=== PATIENT | male | born 1960 | race Caucasian/White ===

== ENCOUNTER 2018-05-07 11:21 | Inpatient (IN) | payer OTHER ==
[~2018-05-07] VITALS: Ht 177.8 cm; Wt 92.5 kg
[~2018-05-07 11:21] MED LIST: MOBIC 15MG15 MG PO; PERCOCET 325 MG1 TA2 PO
--- NOTE | 2018-05-07 11:56 | ED GENERAL ADULT ---
History of Present Illness General Chief Complaint: Fever Stated Complaint: FEVER Source: patient Exam Limitations: no limitations Vital Signs & Intake/Output Vital Signs & Intake/Output Vital Signs Date Time Temp Pulse Resp B/P B/P Pulse O2 O2 Flow FiO2 Mean Ox Delivery Rate 05/07 1510 90/58 05/07 1433 99.3 90 20 97/68 96 Room Air 05/07 1330 97 Room Air 05/07 1141 102.2 05/07 1139 102.2 130 20 135/75 94 Allergies Coded Allergies: NO KNOWN ALLERGIES (NONE 05/07/18) Reconcile Medications No Known Home Medications Triage Note: PT C/O FEVERS SINCE MONDAY NIGHT. STATES H/A, MUSCLE ACHES, EYE PAIN. TEMP 102.2 IN TRIAGE. PT GIVEN 800 MG MOTRIN IN TRIAGE. Triage Nurses Notes Reviewed? yes HPI: Patient states that on Monday evening he developed a fever. He has had anorexia. He denies any coughing or sore throat. States that last night he developed a throbbing frontal headache. Pain is constant. There is no radiation. There is no aggravating or mitigating factors. There is no nausea or vomiting. He denies any neck pain or neck stiffness. Patient also states that intermittently he has been having a crampy pain in his periumbilical area. The pain lasts a few minutes and then goes away. There is no radiation when he gets the pain. At its worst the pain was 3 out of 10. Past History Travel History Traveled to [place] past 21 day No Medical History Any Pertinent Medical History? 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 No Review of Systems Review of Systems Constitutional: Reports: see HPI, chills, fever, weakness. EENTM: Reports: no symptoms. Respiratory: Reports: no symptoms. Cardiovascular: Reports: no symptoms. GI: Reports: see HPI, abdominal pain. Genitourinary: Reports: no symptoms. Musculoskeletal: Reports: see HPI, muscle pain. Skin: Reports: no symptoms. Neurological/Psychological: Reports: see HPI, headache. Hematologic/Endocrine: Reports: no symptoms. Immunologic/Allergic: Reports: no symptoms. All Other Systems: Reviewed and Negative Physical Exam Physical Exam General Appearance: well developed/nourished, alert, awake, anxious, moderate distress Head: atraumatic, normal appearance Eyes: Bilateral: PERRL, EOMI. Ears, Nose, Throat: normal pharynx, DRY MUCOSA Neck: normal inspection, supple, full range of motion Respiratory: normal breath sounds, chest non-tender, no respiratory distress, lungs clear Cardiovascular: regular rate/rhythm, normal peripheral pulses Gastrointestinal: normal bowel sounds, soft, non-tender, no organomegaly Back: normal inspection, normal range of motion Extremities: normal inspection, normal capillary refill, normal range of motion, no edema Neurologic/Psych: no motor/sensory deficits, awake, alert, oriented x 3, normal gait, normal mood/affect Skin: intact, normal color, warm/dry Lymphatic: no anterior cervical luca Core Measures ACS in differential dx? No CVA/TIA Diagnosis: No Sepsis Present: No Sepsis Focused Exam Completed? No Progress Differential Diagnoses I considered the following diagnoses in my evaluation of the patient: [Sepsis, seizures, Lyme disease, anaplasmosis, UTI, pneumonia] Plan of Care: Orders Procedure Date/time Status Regular Diet 05/07 D Active ED Holding Orders 05/07 1521 Active Admit to inpatient 05/07 1521 Active Vital Signs 05/07 1521 Active Code Status 05/07 1521 Active LACTIC ACID 05/07 1446 Active TROPONIN LEVEL 05/07 1200 Complete LIPASE 05/07 1200 Complete Add-on Test (ER Only) 05/07 1156 Active BLOOD CULTURE 05/07 1146 Active LACTIC ACID 05/07 1146 Complete EKG 05/07 1146 Active URINALYSIS 05/07 1144 Active LYME TITRE 05/07 1144 Complete COMPREHENSIVE METABOLIC PANEL 05/07 1144 Complete CREATINE PHOSPHOKINASE 05/07 1144 Complete CBC WITHOUT DIFFERENTIAL 05/07 1144 Complete Current Medications Sig/Gilles Start time Last Medication Dose Stop Time Status Admin Azithromycin 500 MG ONCE ONE 05/07 1515 AC (Zithromax) 05/07 1614 Sodium Chloride 250 ML (Normal Saline 0.9%) Sodium Chloride 1,000 ML BOLUS ONE 05/07 1515 AC (Normal Saline 0.9%) 05/07 1614 Sodium Chloride 1,000 ML BOLUS ONE 05/07 1515 AC (Normal Saline 0.9%) 05/07 1614 Acetaminophen 1,000 MG ONCE ONE 05/07 1145 CAN (Ofirmev) 05/07 1159 N/A 1 UNIT (No Carrier) Laboratory Tests 05/07/18 1200: Lactic Acid 2.4 H 05/07/18 1200: Anion Gap 15, Estimated GFR > 60, BUN/Creatinine Ratio 14.2, Glucose 166 H, Calcium 8.9, Total Bilirubin 0.9, AST 56, ALT 57, Alkaline Phosphatase 75, Creatine Kinase 76, Troponin I < 0.01, Total Protein 7.4, Albumin 4.3, Globulin 3.1, Albumin/Globulin Ratio 1.4, Lipase 128, CBC w Diff MAN DIFF ORDERED, RBC 5.65, MCV 90.3, MCH 31.4 H, MCHC 34.8, RDW 13.3, MPV 7.3 L, Gran % 92.1 H, Lymphocytes % 6.5 L, Monocytes % 1.4 L, Eosinophils % 0, Basophils % 0, Absolute Granulocytes 5.8, Segmented Neutrophils 70, Band Neutrophils 18 H, Absolute Lymphocytes 0.4 L, Lymphocytes 9 L, Monocytes 3, Absolute Monocytes 0.1, Absolute Eosinophils 0, Absolute Basophils 0, Platelet Estimate ADEQUATE, Normocytic RBCs VERIFIED, Normochromic RBCs VERIFIED, Lyme Disease Antibody 0.13 Microbiology 05/07 1205 BLOOD: Blood Culture - RECD 05/07 1200 BLOOD: Blood Culture - RECD Diagnostic Imaging: Viewed by Me: Radiology Read. Discussed w/RAD: Radiology Read. Radiology Impression: PATIENT: COOPER ROGERS PRESENT AGE: 57 PATIENT ACCOUNT NO: [id number] : 62 LOCATION: [facility] ([facility]) ORDERING PHYSICIAN: Isacc CASTILLO SERVICE DATE: 05/07/18 EXAM TYPE: CAT - CT ABD & PELVIS W IV CONTRAST EXAMINATION: CT ABDOMEN AND PELVIS WITH CONTRAST CLINICAL INFORMATION: Abdominal pain and fever COMPARISON: None TECHNIQUE: Multidetector volumetric imaging was performed of the abdomen and pelvis following IV administration of 95 mL of Optiray 320 intravenous contrast. Sagittal and coronal reformatted images were obtained on the technologist's workstation. DLP: 422.80 mGy-cm FINDINGS: LUNG BASES: The visualized lung bases are unremarkable. LIVER, GALLBLADDER, AND BILIARY TREE: The liver is normal in size, shape, and attenuation. No focal hepatic lesion or biliary ductal dilatation is present. The gallbladder is unremarkable with no evidence of radiopaque gallstones, gallbladder wall thickening, or obvious pericholecystic inflammatory changes. PANCREAS: Unremarkable. SPLEEN: Unremarkable. ADRENAL GLANDS: Unremarkable. KIDNEYS AND URETERS: The kidneys are normal in size, shape , and attenuation. No hydronephrosis, hydroureter, or calculi seen. No perinephric stranding. BLADDER: Unremarkable. GASTROINTESTINAL TRACT: No acute bowel pathology. Moderate fecal material noted in the sigmoid colon and rectum. The appendix is unremarkable. ABDOMINAL WALL: No significant hernia is appreciated. LYMPH NODES: Mildly enlarged right external iliac lymph node ( coronal image 40-41) measuring approximately 1 cm in short axis. VASCULAR: Mild atherosclerotic disease of the aorta. PELVIC VISCERA: Mildly enlarged prostate gland. 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 Grade 1 anterolisthesis L4-L5 and L5-S1 levels. Vertebral body heights are preserved. Degenerative endplate disease noted at multiple levels. IMPRESSION: 1. No acute intra-abdominal pathology. 2. Probable reactive mildly prominent right external iliac lymph node. Clinical correlation recommended. 3. Mild prostatomegaly. 4. 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 Grade 1 anterolisthesis L4-L5 and L5-S1 levels. DICTATED BY: Bernadette Diaz MD DATE/TIME DICTATED:05/07/181351 EMBOSSING PRESS OPERATOR APPRENTICE:KASSANDRA DATE/TIME TRANSCRIBED:05/07/181351 CONFIDENTIAL, DO NOT COPY WITHOUT APPROPRIATE AUTHORIZATION. <Electronically signed in Other Vendor System> SIGNED BY: Bernadette Diaz MD 05/07/18 1413 CXR Impression: PATIENT: COOPER ROGERS PRESENT AGE: 57 PATIENT ACCOUNT NO: [id number] : 64 LOCATION: [facility] ([facility]) ORDERING PHYSICIAN: Karson Ndiaye MD SERVICE DATE: 05/07/18-1206 EXAM TYPE: RAD - XRY-CHEST XRAY, TWO VIEWS EXAMINATION: XR CHEST CLINICAL INFORMATION: Fever COMPARISON: None TECHNIQUE: 2 views of the chest were obtained. FINDINGS: Heart size and pulmonary vascularity is within normal limits. The lungs are normally expanded and clear. No focal consolidation or atelectasis is seen. There is no pneumothorax or pleural effusion. 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 No acute bony abnormality is seen. IMPRESSION: Chest x- ray shows normally expanded and clear lungs with no acute findings. DICTATED BY: Starla Cuba MD DATE/TIME DICTATED:05/07/181327 EMBOSSING PRESS OPERATOR APPRENTICE: KASSANDRA DATE/TIME TRANSCRIBED:05/07/181327 CONFIDENTIAL, DO NOT COPY WITHOUT APPROPRIATE AUTHORIZATION. <Electronically signed in Other Vendor System> SIGNED BY: Starla Cuba MD 05/07/18 2989 Initial ED EKG: S TACH AT 120, NSSTT CHANGES Comments: Patient's blood pressure has been steadily decreasing. Currently is 90s systolic manually. At this point patient will be admitted for broad-spectrum antibiotics and aggressive hydration. Departure Departure Disposition: STILL A PATIENT Condition: Guarded Clinical Impression Primary Impression: SIRS (systemic inflammatory response syndrome) Referrals: Hraish Fernandes MD Departure Forms: Customer Survey General Discharge Information Prescriptions: Current Visit Scripts No Known Home Medications Admission Note Spoke With: Yissel Huggins MD Documentation of Exam: Documentation of any treatments & extenuating circumstances including Concerns Regarding Discharge (functional status, medication knowledge or non-compliance, living conditions, etc.) that warrant an admission rather than observation: [ Admission, broad-spectrum antibiotics, aggressive hydration, follow-up cultures, follow-up lyme panel, ID consult] Critical Care Note Critical Care Note Critical Care Time: mins: (90 MIN)
[2018-05-07 12:11] LABS: ABSOLUTE BASOPHIL COUNT 0 /CUMM (0.0-0.2); ABSOLUTE EOSINOPHIL COUNT 0 /CUMM (0.0-0.7); ABSOLUTE GRANULOCYTE CT 5.8 /CUMM (1.4-6.5); ABSOLUTE LYMPH COUNT 0.4 /CUMM (1.2-3.4); ABSOLUTE MONOCYTE COUNT 0.1 /CUMM (0.10-0.60); BASOPHIL % 0 % (0.0-2.0); EOSINOPHIL % 0 % (0-5); GRANULOCYTE % 92.1 % (42.2-75.2); MEAN CORPUSCULAR HGB 31.4 PG (27.0-31.0); MEAN CORPUSCULAR HGB CONC 34.8 G/DL (33.0-37.0); MEAN CORPUSCULAR VOLUME 90.3 FL (80.0-94.0); MEAN PLATELET VOLUME 7.3 FL (7.4-10.4); PLATELET COUNT 158 /CUMM (130-400); RBC DISTRIBUTION WIDTH 13.3 % (11.5-14.5); WHITE BLOOD CELL COUNT 6.3 /CUMM (4.8-10.8)
--- NOTE | 2018-05-07 13:34 | RADIOLOGY REPORT ---
EXAMINATION: XR CHEST CLINICAL INFORMATION: Fever COMPARISON: None TECHNIQUE: 2 views of the chest were obtained. FINDINGS: Heart size and pulmonary vascularity is within normal limits. The lungs are normally expanded and clear. No focal consolidation or atelectasis is seen. There is no pneumothorax or pleural effusion. 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 No acute bony abnormality is seen. IMPRESSION: Chest x-ray shows normally expanded and clear lungs with no acute findings.
--- NOTE | 2018-05-07 14:13 | CT SCAN REPORT ---
EXAMINATION: CT ABDOMEN AND PELVIS WITH CONTRAST CLINICAL INFORMATION: Abdominal pain and fever COMPARISON: None TECHNIQUE: Multidetector volumetric imaging was performed of the abdomen and pelvis following IV administration of 95 mL of Optiray 320 intravenous contrast. Sagittal and coronal reformatted images were obtained on the technologist's workstation. DLP: 422.80 mGy-cm FINDINGS: LUNG BASES: The visualized lung bases are unremarkable. LIVER, GALLBLADDER, AND BILIARY TREE: The liver is normal in size, shape, and attenuation. No focal hepatic lesion or biliary ductal dilatation is present. The gallbladder is unremarkable with no evidence of radiopaque gallstones, gallbladder wall thickening, or obvious pericholecystic inflammatory changes. PANCREAS: Unremarkable. SPLEEN: Unremarkable. ADRENAL GLANDS: Unremarkable. KIDNEYS AND URETERS: The kidneys are normal in size, shape, and attenuation. No hydronephrosis, hydroureter, or calculi seen. No perinephric stranding. BLADDER: Unremarkable. GASTROINTESTINAL TRACT: No acute bowel pathology. Moderate fecal material noted in the sigmoid colon and rectum. The appendix is unremarkable. ABDOMINAL WALL: No significant hernia is appreciated. LYMPH NODES: Mildly enlarged right external iliac lymph node (coronal image 40-41) measuring approximately 1 cm in short axis. VASCULAR: Mild atherosclerotic disease of the aorta. PELVIC VISCERA: Mildly enlarged prostate gland. 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 Grade 1 anterolisthesis L4-L5 and L5-S1 levels. Vertebral body heights are preserved. Degenerative endplate disease noted at multiple levels. IMPRESSION: 1. No acute intra-abdominal pathology. 2. Probable reactive mildly prominent right external iliac lymph node. Clinical correlation recommended. 3. Mild prostatomegaly. 4. 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 Grade 1 anterolisthesis L4-L5 and L5-S1 levels.
--- NOTE | 2018-05-07 17:04 | History & Physical ---
Macario Griffin MD 05/07/18 5063: General Information and HPI MD Statement: I have seen and personally examined COOPER ROGERS and documented this H&P. The patient is a 57 year old M who presented with a patient stated chief complaint of [fever,fatigue]. Source of Information: patient, family Exam Limitations: no limitations History of Present Illness: Patient is a 57-year-old male with no significant past medical history presenting this admission with chief complaint of fever, fatigue and abdominal cramps. Patient reports that 2 days prior to admission he cooked beef tongue which he obtained from a local former. Patient reports that after approximately an hour of eating he started noticing fever, abdominal cramps and bloating and muscle aches. Reports that the abdominal pain was localized to his epigastric region and nonradiating. Patient states that he measure his temperature which was 103. Patient denies any nausea/vomitting or diarrhea. Reports he had diffuse muscle aches and throbbing headache and night sweats. States that he did not eat much over the past 2 days. Patient states he waited to come to the hospital today as he had court this morning. States his symptoms have continued and in addition started having chills. Patient reports that he lives with his girlfriend who was at bedside during time of interview. She states that he has not appeared to be like his usual self and appears much more lethargic. She states that she did not eat the beef tongue. Patient denies sick contacts, bug bite or recent travel. 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 Denies smoking, alcohol use or other drug use. Patient denies allergies. Patient reports he is not currently on any medications and denies any past medical history. Reports no significant family history. Patient denies recent illness prior to these symptoms, cough, chest pain, shortness of breath, palpitations, dizziness, dysuria/hematuria. Patient presented to the ED with a max temp of 102.2, a HR of 130 and bp which dropped from 135/75 to 97/68. Patient was given 3L NS boluses with improvement in his blood pressure. Patient received broad spectrum antibiotics, IV Ceftaz 1gm x1 and IV Azithromycin x1. 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 Exam & Diagnostic Data Last 24 Hrs of Vital Signs/I&O Vital Signs Date Time Temp Pulse Resp B/P B/P Pulse O2 O2 Flow FiO2 Mean Ox Delivery Rate 05/07 1647 98.0 71 18 97/61 97 Room Air 05/07 1526 98.5 86 16 98 Room Air 05/07 1510 90/58 05/07 1433 99.3 90 20 97/68 96 Room Air 05/07 1330 97 Room Air 05/07 1141 102.2 05/07 1139 102.2 130 20 135/75 94 Intake & Output 05/07 1600 05/07 0800 05/07 0000 Intake Total 3000 Output Total Balance 3000 Intake, IV 3000 Patient 204 lb Weight Weight Reported by Patient Measurement Method Physical Exam General Appearance Alert, Oriented X3, Cooperative, No Acute Distress Skin No Rashes Skin Temp/Moisture Exam: Warm/Dry Sepsis Skin Exam (color): Normal for Ethnicity HEENT Atraumatic, PERRLA, EOMI, dry mucosal membranes Neck Supple, No thryomegaly, no nuccal rigidity Cardiovascular Regular Rate, Normal S1, Normal S2 Lungs Clear to Auscultation, Normal Air Movement Abdomen Normal Bowel Sounds, Soft, No Tenderness Neurological Normal Speech, Strength at 5/5 X4 Ext, Normal Tone, Sensation Intact, Cranial Nerves 3-12 NL, Reflexes 2+ Extremities No Clubbing, No Cyanosis, No Edema, Normal Pulses, No Tenderness/ Swelling Vascular Normal Pulses, Pulses Symmetrical Last 24 Hrs of Labs/Samuel: Laboratory Tests 05/07/18 1815: Lactic Acid 1.0 05/07/18 1546: Urine Opiates Screen < 100, Methadone Screen < 40, Barbiturate Screen < 60, Ur Phencyclidine Scrn < 6.00, Amphetamines Screen < 100, U Benzodiazepines Scrn < 85, Urine Cocaine Screen < 50, Urine Cannabis Screen < 5.00, Urinalysis MOD H, Urine Color YEL, Urine Clarity CLEAR, Urine pH 6.0, Ur Specific Currie 1.020, Urine Protein 100 H, Urine Ketones NEG, Urine Nitrite NEG, Urine Bilirubin NEG, Urine Urobilinogen 2.0 H, Ur Leukocyte Esterase NEG, Ur Microscopic SEDIMENT EXAMINED, Urine RBC RARE, Urine WBC RARE, Ur Epithelial Cells FEW, Urine Bacteria RARE H, Urine Mucus FEW, Urine Hemoglobin TRACE-INTACT H, Urine Glucose NEG 05/07/18 1200: Lactic Acid 2.4 H 05/07/18 1200: Anion Gap 15, Estimated GFR > 60, BUN/Creatinine Ratio 14.2, Glucose 166 H, Calcium 8.9, Total Bilirubin 0.9, AST 56, ALT 57, Alkaline Phosphatase 75, Lactate Dehydrogenase 689 H, Creatine Kinase 76, Troponin I < 0.01, C-Reactive Prot, Quant > 9.0 H, Total Protein 7.4, Albumin 4.3, Globulin 3.1, Albumin/ Globulin Ratio 1.4, Triglycerides 112, Cholesterol 241 H, LDL Cholesterol, Calc 167 H, HDL Cholesterol 52, Cholesterol/HDL Ratio 5 H, Lipase 128, TSH 0.648, Free T4 1.24, CBC w Diff MAN DIFF ORDERED, RBC 5.65, MCV 90.3, MCH 31.4 H, MCHC 34.8, RDW 13.3, MPV 7.3 L, Gran % 92.1 H, Lymphocytes % 6.5 L, Monocytes % 1.4 L, Eosinophils % 0, Basophils % 0, Absolute Granulocytes 5.8, Segmented Neutrophils 70, Band Neutrophils 18 H, Absolute Lymphocytes 0.4 L, Lymphocytes 9 L, Monocytes 3, Absolute Monocytes 0.1, Absolute Eosinophils 0, Absolute Basophils 0, Platelet Estimate ADEQUATE, Normocytic RBCs VERIFIED, Normochromic RBCs VERIFIED, ESR Westergren 4, Lyme Disease Antibody 0.13 Microbiology 05/07 1205 BLOOD: Blood Culture - RECD 05/07 1200 BLOOD: Blood Culture - RECD Diagnostic Data EKG Results Sinus tachycardia CXR Results IMPRESSION: Chest x-ray shows normally expanded and clear lungs with no acute findings. Other Results CT ABDOMEN/PELVIS W/CONTRAST IMPRESSION: 1. No acute intra-abdominal pathology. 2. Probable reactive mildly prominent right external iliac lymph node. Clinical correlation recommended. 3. Mild prostatomegaly. 4. 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 Grade 1 anterolisthesis L4-L5 and L5-S1 levels. Assessment/Plan Assessment: Patient is a 57-year-old male with no significant past medical history presenting with significant hypotension, tachycardia, fever and abdominal cramps after ingesting beef tongue which he cooked himself 2 days ago. Patient in the ED was febrile to a MAXIMUM TEMPERATURE of 102.2 and was significantly hypotensive requiring 3 boluses of normal saline. Patient's chest x-ray and CT did not show any significant findings. Patient's blood work significant for lactic acid of 2.4 and bandemia. Urinalysis was unremarkable. After IV fluids patient's bp increased to 110s/80s. Patient was stable for admission to the general medical floor. Patient has received broad spectrum antibiotics x 1 dose. 1. SIRS/Fever of Unknown Origin * Admitted to general medicine * Close monitor of vitals * Follow up blood and urine cultures * Follow off antibiotics * CT Head/Sinus * ESR, CRP, LDH * CT Chest pending LDH level for possible lymphoma * Continue IV fluid hydration * Repeat CBC and BEP in AM * Trend lactic acid q3h until it normalizes * Follow up Utox DVT PPx: Lovenox Diet: Regular Code: Full code As Ranked By This Provider Problem List: 1. SIRS (systemic inflammatory response syndrome) 2. Fever of unknown origin (FUO) Core Measures/Misc (08/06) Acute Coronary Syndrome ACS Diagnosis: No Congestive Heart Failure Congestive Heart Failure Diagnosis No Cerebrovascular Accident CVA/TIA Diagnosis: No VTE (View Protocol) VTE Risk Factors Age>40 No Mechanical VTE Prophylaxis d/t N/A MechProphylax Ordered No VTE Pharm Prophylaxis d/t NA PharmProphylax ordered Sepsis (View protocol) If YES complete Sepsis Event Note If YES complete Sepsis Event Note Toni Dennis 05/07/18 1823: General Information and HPI Allergies/Medications Home Med list Doxycycline Hyclate 100 MG CAPSULE 1 TAB PO BID TICK BORNE ILLNESS Take 1 tab tonight Then take 1 tab in the morning and 1 tab at bedtime until completed. Core Measures/Misc (08/06) Sepsis (View protocol) Sepsis Present: No If YES complete Sepsis Event Note If YES complete Sepsis Event Note Resident Review Statement Resident Statement: examined this patient, discussed with director international, agreed with director international, discussed with family, reviewed EMR data (avail), discussed with nursing , discussed with case mgmt, reviewed images, amended to note Other Findings: This is a 57-year-old male with no past medical history presented to the emergency department with chief complaint of fever since Monday night. Patient reports ongoing fever for last couple of days. Patient also reports intermittent abdominal discomfort associated with the bloating sensation for couple of days. He states that he cooked beef on Monday evening, after that he had fever and night sweats. MAXIMUM TEMPERATURE was 103. States that last night he developed a throbbing frontal headache. Pain is constant. There is no radiation. There is no aggravating or mitigating factors. There is no nausea or vomiting. He denies any neck pain or neck stiffness, photophobia. Patient also states that intermittently he has been having a crampy pain in his periumbilical area. He denies any chest pain, short of breath, cough, sputum production, hemoptysis, nausea, vomiting, change in bladder or bowel habits. No travel history or sick contacts. He reports generalized muscle pain, fatigue, anorexia. Denies any weight loss. No history of smoking, alcohol abuse, recreational drug use. No family history of cancer, hypertension, diabetes ------ Vitals MAXIMUM TEMPERATURE 102.2, tachycardia 130, respiratory rate 20, blood pressure 135/75, saturating at 96 on room air. On exam HEENT within normal limit, no JVD, no lymphadenopathy, S1-S2 regular, lung bilateral breath sounds good, abdomen soft nontender non-distended, bilateral lower extremities no edema. No focal neurologic deficit. No meningeal signs on exam. WBC 6.3 with bandemia 18, hemoglobin 17 and hematocrit 51, platelets 158. Sodium 140, potassium 3.8, BUN 17 and creatinine 1.2. Lyme panel negative Urine analysis negative Chest x-ray no acute cardiopulmonary findings LFT normal Troponin negative EKG sinus tachycardia, sinus rhythm, no acute ST-T wave changes CAT scan abdomen and pelvis 1. No acute intra-abdominal pathology. 2. Probable reactive mildly prominent right external iliac lymph node. Clinical correlation recommended. 3. Mild prostatomegaly. 4. 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 Grade 1 anterolisthesis L4-L5 and L5-S1 levels. 1. Fever of unknown origin Patient presented with fever Tmax 103. He is tachycardic, fulfilled SIRS criteria at the time of admission. He was hypotensive 90/58 in the emergency room requiring 2 L of normal saline bolus. Lactic acid was elevated at 2.4. Source of infection is unknown so far. Chest x-ray was clear, no acute cardiopulmonary findings, no pneumonia. Urine analysis was normal. 2 sets of blood cultures were sent. Lyme titers were negative. CAT scan abdomen and pelvis showed, no acute intra-abdominal pathology, no source of infection was found. Given his intake of beef tongue, Escherichia coli might be one of the possibility. However he has no D diarrhea. Will get CAT scan head, sinus to look for any infection. No signs of meningeal infection. No source of tumor was found. No known connective tissue abnormalities. * Admit to general med for further management * Monitor vitals every shift * Monitor for fever, leukocytosis * Trend lactic acid * Monitor for bandemia * Follow-up blood cultures * Follow-up CAT scan head and sinus * Follow-up ESR, CRP, look for any connective tissue abnormality. * Follow-up LDH * Follow-up U tox * If LDH is 7 CAT scan chest to look for any lymphoma * Continue gentle hydration to maintain good blood pressure * Patient received 1 dose of ceftaz and azithromycin in the emergency room * We'll monitor him off from antibiotics for now Patient is full code Regular diet DVT prophylaxis subcutaneous heparin Pain pathway Tylenol Yissel Huggins 05/07/18 2222: Core Measures/Misc (08/06) Sepsis (View protocol) If YES complete Sepsis Event Note If YES complete Sepsis Event Note Attending MD Review Statement Attending Statement Attending MD Statement: examined this patient, discuss w/resident/PA/DIE TRY OUT WORKER, agreed w/resident/PA/DIE TRY OUT WORKER, discussed with family, reviewed EMR data (avail) Attending Assessment/Plan: 57-year-old male with no significant past medical history presenting this admission with chief complaint of fever, fatigue and abdominal cramps. Pt reported eating beef tongue which he got from local farm. He started having symptoms about an hour after eating it and had fever of 101 on Monday night. Pt cont having fevers on monday with fevers upto 102. In ER also pt had fever and was found to be hypotensive. Pt also had lactic acidosis also in ER. SIRS/Fever of unknown origin- Workup done in ER including abdominal CT and cxr and UA was negative. we did head CT which did not show any pathology to explain the fever. CRP done was high and so was LDH. Will do CT chest to look for the source. Unlear etiology of fever at present . Pt has normal wbc but has bandemia. Was given abx in ER but will hold off on abx for now. Will get ID consult in am.
[2018-05-07 17:20] VITALS: BP 110/68
[2018-05-07 19:36] VITALS: BP 114/70
--- NOTE | 2018-05-07 21:33 | CT SCAN REPORT ---
EXAMINATION: CT HEAD WITHOUT CONTRAST CT PARANASAL SINUSES BONES WITHOUT CONTRAST CLINICAL INFORMATION: Sepsis. Fever of unknown origin. Assess sinuses. COMPARISON: None. TECHNIQUE: Multidetector CT imaging of the head and paranasal sinuses bones was performed without the use of intravenous contrast. Coronal and sagittal reformatted images were generated at the technologist workstation. DLP: 852 mGy-cm. FINDINGS: CT Head: There is no evidence of acute intracranial hemorrhage or territorial infarction. No abnormal mass-effect or midline shift is seen. Walton to white matter differentiation is well preserved. No extra-axial fluid collections are identified. The ventricles are normal in size; asymmetry of the bodies of the lateral ventricles is within normal limits of variation. There is no abnormal attenuation within the brain parenchyma. The osseous structures and soft tissues are normal. CT Sinuses: FRONTAL SINUSES AND DRAINAGE PATHWAYS: The frontal sinuses are well-developed bilaterally. There is mild mucoperiosteal thickening in the inferomedial left frontal sinuses. MAXILLARY SINUSES AND DRAINAGE PATHWAYS: The maxillary sinuses are well-developed bilaterally. There is trace mucoperiosteal thickening in the right maxillary sinus, and there is a small retention cyst adjacent to the secondary ostium in the medial wall of the right maxillary sinus. There is some soft tissue at the right ostiomeatal complex. The left ostiomeatal unit is patent. ETHMOID SINUSES: The ethmoid sinuses are well-developed bilaterally. There is mild bilateral mucoperiosteal thickening in the ethmoid air cells, more prominent anteriorly on the right. SPHENOID SINUSES AND DRAINAGE PATHWAYS: Both sphenoid sinuses are well-developed. There is a minimal amount of mucoperiosteal thickening of the left sphenoethmoidal recess. NASAL CAVITY AND NASAL SEPTUM: The nasal septum is deviated to the left and there is a prominent left-sided bony nasal septal spur abutting the superior aspect of the left inferior turbinate bone. ADDITIONAL RELEVANT FINDINGS: The lamina papyracea are intact. The carotid canals are normally covered by bone. The ethmoid roofs are symmetric. No periapical disease is seen. The TMJs and orbits are normal. The mastoid air cells are clear. IMPRESSION: 1. There are no acute intracranial bleeds or territorial infarcts. No masses are demonstrated. 2. There is mild mucoperiosteal thickening in multiple paranasal sinuses. There is some soft tissue in the right ostiomeatal complex. There is no significant acute paranasal sinus disease. 3. The nasal septum is deviated to the left and there is a prominent left-sided bony nasal septal spur.
--- NOTE | 2018-05-07 21:49 | Admission Certification ---
Admission Certification Certification Statement - As attending physician, I certify that at the time of - admission, based on clinical presentation, severity of - symptoms, need for further diagnostic testing and - therapeutic interventions, and risk of adverse outcomes - without in-hospital treatment, in my clinical assessment, - this patient requires an acute hospital stay for a minimum - of two nights or longer. I have also considered psychsocial - factors such as support system, advanced age, financial - issues, cognitive issues, and failed out-patient treatments, - past re-admission history, safety of patient, and lack of - compliance as applicable. Specific rationale supporting this admission is: fever of unknown origin with lactic acidosis.
[2018-05-07 22:32] VITALS: BP 110/72
--- NOTE | 2018-05-08 00:12 | CT SCAN REPORT ---
EXAMINATION: CT CHEST WITHOUT CONTRAST CLINICAL INFORMATION: Fever. COMPARISON: Same day chest radiograph. TECHNIQUE: Contiguous axial thin section helical images of the chest were performed without contrast. The data set was reformatted in the coronal and sagittal planes and reviewed on an independent workstation. DLP: 340 mGy-cm. FINDINGS: The heart is of normal size. There is no pericardial effusion. There is neither mediastinal, hilar nor axillary lymphadenopathy. There are no chest wall masses. Review of lung windows demonstrates that there are neither pleural effusions nor pneumothoraces. There are no consolidations. There is mild bibasilar atelectasis. There are no pulmonary parenchymal nodules. Images of the upper abdomen demonstrate that the liver is of normal size and attenuation without focal lesions. Normal adrenal glands are identified. Bone windows: Neither sclerotic nor lytic bone lesions are identified. IMPRESSION: Bibasilar atelectasis. No consolidations.
[2018-05-08 05:39] VITALS: BP 118/48
--- NOTE | 2018-05-08 05:57 | Event Note ---
Event Note Event Note: Around 20:30 I was informed that the patient is spiking fever up to 104. At that time the patient reports mild abdominal distention and pain that started 1- 2 hours after he ate cow tongue that he brought from a forearm 3 weeks ago and freeze. This makes gastroenteritis a possibility. CT abdomen showed right external iliac lymph node enlargement, lower extremity inspection revealed right popliteal small erythematous nodule suspicious for tick bites. The patient is also complaining of right lower extremity pain especially when Alps squeez calf muscle. The patient reports driving for 5 hours on Monday followed by sleeping for long hours. His right calf is 1.5 CM larger that left. DD: * Tick infection * Gastroenteritis, possibly preformed toxin ingestion given symptoms started 2 hours after ingestion * Lower extremity DVT Plan, we'll * Add ibuprofen when necessary for fever given that Tylenol is not sufficient * Empirically treat with doxycycline until evaluated by ID in the morning * Send for peripheral smear and Tick panel * Order lower extremity ultrasound
[2018-05-08 06:35] LABS: RED BLOOD CELL CT 5.65 /CUMM (4.70-6.10)
--- NOTE | 2018-05-08 08:02 | PN- Housestaff ---
Elias GURROLA,Macario 05/08/18 0801: Subjective Follow-up For: Fever of Unknown Origin Likely tick borne illness Subjective: Patient was seen and examined. Reports continued fever however states he feels improved since admission. Patient's max temp was 104.1. Reports good appetitie. Denies n/v/d, abdominal pain, chest pain, shortness of breath, palpitattions. Review of Systems Constitutional: Reports: see HPI. Objective Last 24 Hrs of Vital Signs/I&O Vital Signs Date Time Temp Pulse Resp B/P B/P Pulse O2 O2 Flow FiO2 Mean Ox Delivery Rate 05/08 2238 102.4 89 18 112/72 95 Room Air 05/08 2039 102.0 05/08 1906 99.0 05/08 1427 98.2 63 18 118/80 97 Room Air 05/08 1020 99.4 05/08 0922 101.9 05/08 0715 101.7 05/08 0715 101.7 05/08 0539 103.7 97 18 118/48 95 Room Air 05/08 0530 103.7 Intake & Output 05/09 0800 05/09 0000 05/08 1600 Intake Total 200 1550 Output Total 1300 Balance 200 250 Intake, IV 200 700 Intake, Oral 850 Number 1 Bowel Movements Output, Urine 1300 Physical Exam General Appearance: Alert, Cooperative, No Acute Distress Skin Temp/Moisture Exam: Warm/Dry Sepsis Skin Exam (color): Normal for Ethnicity HEENT: Atraumatic, Mucous Membr. moist/pink Cardiovascular: Regular Rate, Normal S1, Normal S2 Lungs: Clear to Auscultation, Normal Air Movement Abdomen: Normal Bowel Sounds, Soft, No Tenderness, No Hepatospenomegaly, No Masses Neurological: Normal Speech, Strength at 5/5 X4 Ext, Normal Tone, Sensation Intact, Cranial Nerves 3-12 NL Extremities: are of redness at popliteal fossa of right leg Current Medications: Current Medications Sig/Gilles Start time Last Medication Dose Route Stop Time Status Admin Acetaminophen 1,000 MG Q6P PRN 05/07 1600 AC 05/08 IV 190 Doxycycline Hyclate 100 MG BID 05/08 0900 AC 05/08 PO 2020 Heparin Sodium 5,000 UNIT Q8 05/07 2200 AC 05/08 (Porcine) SC 2020 Ibuprofen 600 MG Q6P PRN 05/07 2130 AC 05/08 PO 0922 Patient Medication 1 ED ONE ONE 05/08 1630 AK 05/08 Teaching ED 05/08 1631 2021 Simethicone 80 MG Q6P PRN 05/07 1915 05/08 PO 0535 Sodium Chloride 1,000 ML Q13H 05/07 1815 AK 05/08 IV 0530 Last 24 Hrs of Lab/Samuel Results Last 24 Hrs of Labs/Mics: Laboratory Tests 05/08/18 2100: A.phagocytophil DNA PCR Pending 05/08/18 0705: Anion Gap 7, Estimated GFR > 60, BUN/Creatinine Ratio 12.5, CBC w Diff NO MAN DIFF REQ, RBC 4.38 L, MCV 90.6, MCH 31.2 H, MCHC 34.4, RDW 13.3, MPV 8.0, Gran % 86.6 H, Lymphocytes % 8.8 L, Monocytes % 4.4, Eosinophils % 0, Basophils % 0.2, Absolute Granulocytes 3.2, Absolute Lymphocytes 0.3 L, Absolute Monocytes 0.2, Absolute Eosinophils 0, Absolute Basophils 0, Babesia microti DNA PCR Pending 05/08/18 0600: A.phagocytophil DNA PCR Cancelled Assessment/Plan Assessment: Patient is a 57-year-old male with no significant past medical history presenting with significant hypotension, tachycardia, fever and abdominal cramps after ingesting beef tongue which he cooked himself 2 days ago. Patient in the ED was febrile to a MAXIMUM TEMPERATURE of 102.2 and was significantly hypotensive requiring 3 boluses of normal saline. Patient's chest x-ray and CT did not show any significant findings. Patient's blood work significant for lactic acid of 2.4 and bandemia. Urinalysis was unremarkable. After IV fluids patient's bp increased to 110s/80s. Patient was stable for admission to the general medical floor. Patient has received broad spectrum antibiotics x 1 dose. Patient overnight spiked a temp of 104.1. After re-evaluation, it appeared based on patient's history and physical exam patient may have been exposed to a tick. Patient was started on doxycyline and labs were sent. Patient was seen by ID today. Patient's findings are consistent with the possiblity of anaplamosis. There was concern for possible DVT with increased swelling right leg- DVT of lower extremities was negative. Patient had a CT head/sinuses and CT chest which was unremarkable. 1. SIRS/Fever of Unknown Origin - possibly secondary to tick borne illness * Admitted to general medicine * Close monitor of vitals * Follow up blood and urine cultures * Continue doxycycline 100mg q12h * Follow up tick panel, peripheral smear * Repeat CBC and BEP in AM DVT PPx: Lovenox Diet: Regular Code: Full code Problem List: 1. Fever of unknown origin (FUO) Pain Ratin Pain Location: n/a Pain Goal: Remain pain free Pain Plan: prn Tomorrow's Labs & Rationales: anushka Chaves MD,Polly 05/08/18 1544: Attending MD Review Statement Attending Statement Attending MD Statement: examined this patient, discuss w/resident/PA/CLUB MANAGER, agreed w/resident/PA/CLUB MANAGER, discussed with family, reviewed EMR data (avail), discussed with nursing, discussed with case mgmt, amended to note Attending Assessment/Plan: Patient seen and examined. Lying in bed and not in acute distress. Reports feeling better compared to presentation but he reports still being lethargic. Denies nausea vomiting. Denies diarrhea. Denies abdominal pain. On examination no significant rash on his body. He does have what appears to be an insect bite area on the popliteal aspect of the right leg. Differentials includes tickborne disease. He is currently on doxycycline. Continue this regimen pending results of blood culture and serologic testing.
[2018-05-08 08:35] LABS: ABSOLUTE BASOPHIL COUNT 0 /CUMM (0.0-0.2); ABSOLUTE EOSINOPHIL COUNT 0 /CUMM (0.0-0.7); ABSOLUTE LYMPH COUNT 0.3 /CUMM (1.2-3.4); ABSOLUTE MONOCYTE COUNT 0.2 /CUMM (0.10-0.60); EOSINOPHIL % 0 % (0-5); RBC DISTRIBUTION WIDTH 13.3 % (11.5-14.5)
[2018-05-08 08:56] LABS: ABSOLUTE GRANULOCYTE CT 3.2 /CUMM (1.4-6.5); BASOPHIL % 0.2 % (0.0-2.0); MEAN CORPUSCULAR HGB 31.2 PG (27.0-31.0); MEAN CORPUSCULAR HGB CONC 34.4 G/DL (33.0-37.0); MEAN CORPUSCULAR VOLUME 90.6 FL (80.0-94.0); PLATELET COUNT 103 /CUMM (130-400); RED BLOOD CELL CT 4.38 /CUMM (4.70-6.10); WHITE BLOOD CELL COUNT 3.7 /CUMM (4.8-10.8)
[2018-05-08 09:10] LABS: HEMATOCRIT 39.7 % (42-52)
[2018-05-08 09:38] LABS: GRANULOCYTE % 86.6 % (42.2-75.2)
--- NOTE | 2018-05-08 10:23 | ULTRASOUND REPORT ---
EXAMINATION: US TRIPLEX OF LOWER EXTREMITIES, BILATERAL CLINICAL INFORMATION: Right leg swelling and pain. COMPARISON: None available. TECHNIQUE: Color-flow triplex imaging with spectral analysis and compression Doppler were performed on the lower extremities. FINDINGS: Respiratory variation, normal compression and augmented flow are noted throughout the lower extremities. The visualized common femoral vein, superficial femoral vein, profunda femoral vein, popliteal vein and midcalf peroneal and posterior tibial venous segments show no evidence of deep venous thrombosis. There is no Olivas's cyst. IMPRESSION: No evidence of deep venous thrombosis involving the bilateral lower extremities.
[2018-05-08 14:27] VITALS: BP 118/80
--- NOTE | 2018-05-08 16:59 | Cons- Infect Disease ---
General Information and HPI Consulting Request Date of Consult: 05/08/18 Requested By: Polly Chaves MD Reason for Consult: Unexplained fever Source of Information: patient History of Present Illness: This is a 57-year-old man with no significant past medical history admitted on May 07 after presenting to the emergency room with a 2 day history of headache, body aches, epigastric pain, fevers and chills. On admission he was febrile to 102.2. Laboratory data revealed a white blood cell count of 6000, with 70 segs and 18 bands, H&H 18 and 51, platelets 158,000, BUN/creatinine 17 and 1.2, with normal liver enzymes. Urinalysis rare RBC/rare WBCs. CT of the head, including face and sinuses, was negative for any acute process. CT of the chest revealed bibasilar atelectasis. CT of the abdomen and pelvis revealed mild prostatomegaly. Chest x-ray was negative. He was given Azithromycin and Ceftazidime in the emergency room and was then followed off antibiotics. Overnight he spiked to 104.1, and he was begun on Doxycycline this morning for a possible tickborne infection. He feels improved this afternoon with no further body aches or headaches and his temperatures have decreased. He has had no recent travel. He does not spend a significant amount of time outdoors and does not report any tick bites, but he did note a pruritic lesion in the right popliteal area over the past week. 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 Home Smoking Status: Never Smoked ETOH Use: denies use Illicit Drug Use: denies illicit drug use Review of Systems Review of Systems All Other Systems: Reviewed and Negative Exam & Diagnostic Data Last 24 Hrs of Vital Signs/I&O Vital Signs Date Time Temp Pulse Resp B/P B/P Pulse O2 O2 Flow FiO2 Mean Ox Delivery Rate 05/08 1427 98.2 63 18 118/80 97 Room Air 05/08 1020 99.4 05/08 0922 101.9 05/08 0715 101.7 05/08 0715 101.7 05/08 0539 103.7 97 18 118/48 95 Room Air 05/08 0530 103.7 05/07 2311 100.4 05/07 2303 100.4 05/07 2232 99.2 88 20 110/72 96 Room Air 05/07 2200 101.8 05/07 2136 103.5 05/07 2053 103.5 05/07 2038 104.1 05/07 2030 104.1 05/07 2000 102.3 05/07 1943 101.1 05/07 1936 101.1 123 20 114/70 96 Room Air 05/07 1915 98.4 05/07 1720 98.0 86 20 110/68 98 05/07 1647 98.0 71 18 97/61 97 Room Air Intake & Output 05/08 1600 05/08 0800 05/08 0000 Intake Total 1550 1420 975 Output Total 1300 1400 800 Balance 250 20 175 Intake, IV 700 940 495 Intake, Oral 850 480 480 Number 1 1 Bowel Movements Output, Urine 1300 1400 800 Patient 204 lb Weight Weight Reported by Patient Measurement Method Physical Exam Other Physical Findings: He is awake and alert in no acute distress. T-max 104.1. Skin reveals a small erythematous lesion in the right popliteal area, with no target or central clearing noted. HEENT exam is negative. Neck is supple with no adenopathy. Lungs are clear. Heart regular rhythm with no murmur. Abdomen is soft, nontender with positive bowel sounds. Back no CVA tenderness. Extremities no cyanosis, clubbing or edema. Neuro is without focality. Last 24 Hours of Lab Results: Laboratory Tests 05/08 05/08 05/07 0705 0600 1815 Chemistry Sodium (137 - 145 mmol/L) 138 Potassium (3.5 - 5.1 mmol/L) 3.5 Chloride (98 - 107 mmol/L) 108 H Carbon Dioxide (22 - 30 mmol/L) 24 Anion Gap (5 - 16) 7 BUN (9 - 20 mg/dL) 10 Creatinine (0.7 - 1.2 mg/dL) 0.8 Estimated GFR (>60 ml/min) > 60 BUN/Creatinine Ratio (7 - 25 %) 12.5 Lactic Acid (0.7 - 2.1 mmol/L) 1.0 Hematology CBC w Diff NO MAN DIFF REQ WBC (4.8 - 10.8 /CUMM) 3.7 L RBC (4.70 - 6.10 /CUMM) 4.38 L Hgb (14.0 - 18.0 G/DL) 13.6 L Hct (42 - 52 %) 39.7 L MCV (80.0 - 94.0 FL) 90.6 MCH (27.0 - 31.0 PG) 31.2 H MCHC (33.0 - 37.0 G/DL) 34.4 RDW (11.5 - 14.5 %) 13.3 Plt Count (130 - 400 /CUMM) 103 L MPV (7.4 - 10.4 FL) 8.0 Gran % (42.2 - 75.2 %) 86.6 H Lymphocytes % (20.5 - 51.1 %) 8.8 L Monocytes % (1.7 - 9.3 %) 4.4 Eosinophils % (0 - 5 %) 0 Basophils % (0.0 - 2.0 %) 0.2 Absolute Granulocytes (1.4 - 6.5 /CUMM) 3.2 Absolute Lymphocytes (1.2 - 3.4 /CUMM) 0.3 L Absolute Monocytes (0.10 - 0.60 /CUMM) 0.2 Absolute Eosinophils (0.0 - 0.7 /CUMM) 0 Absolute Basophils (0.0 - 0.2 /CUMM) 0 Serology A.phagocytophil DNA PCR Cancelled Babesia microti DNA PCR Pending Ehrlichia DNA (PCR) Pending Last 24 Hours of Samuel Results: Blood cultures 2 May 07 negative Diagnostic Data Recent Imaging Findings: CT of the head, including face and sinuses, was negative for any acute process. CT of the chest revealed bibasilar atelectasis. CT of the abdomen and pelvis revealed mild prostatomegaly. Chest x-ray was negative. Dopplers of both lower extremities May 08 negative Assessment/Plan Assessment/Plan Impression: This is a 57-year-old man with no significant past medical history admitted on May 07 with a 2 day history of headache, body aches, epigastric pain, fevers and chills, found to be febrile with a normal white blood cell count, though with bandemia, with no obvious focus of infection but with the development of leukopenia and thrombocytopenia today. His clinical picture is suggestive of a tickborne infection, mainly Anaplasma, given his leukopenia and thrombocytopenia. The peripheral smear was reviewed in the hematology lab, with no evidence of any inclusions, but this should be again reviewed on today's and tomorrow's smears. Co-infection with Lyme disease occurs in approximately 20% of the cases of Anaplasma as they are both carried by the same tick (Ixodes scapularis) and Doxycycline will treat both infections. Suggestion: 1. Have the Hematology lab review today and tomorrow's peripheral smear in the a.m. 2. Serum for PCR for Anaplasma (not Ehrlichia) 3. Continue Doxycycline 100 mg p.o. every 12 hours Consult Acknowledgment - Thank you for your consult request.
[2018-05-08 22:38] VITALS: BP 112/72
[2018-05-09 06:13] VITALS: BP 122/72
[2018-05-09 07:56] LABS: ABSOLUTE BASOPHIL COUNT 0 /CUMM (0.0-0.2); ABSOLUTE EOSINOPHIL COUNT 0 /CUMM (0.0-0.7); ABSOLUTE GRANULOCYTE CT 3.2 /CUMM (1.4-6.5); ABSOLUTE LYMPH COUNT 1.3 /CUMM (1.2-3.4); ABSOLUTE MONOCYTE COUNT 0.5 /CUMM (0.10-0.60); BASOPHIL % 0.2 % (0.0-2.0); EOSINOPHIL % 0.2 % (0-5); GRANULOCYTE % 63.5 % (42.2-75.2); HEMATOCRIT 40.3 % (42-52); MEAN CORPUSCULAR HGB 31.1 PG (27.0-31.0); MEAN CORPUSCULAR HGB CONC 34.9 G/DL (33.0-37.0); MEAN CORPUSCULAR VOLUME 89.1 FL (80.0-94.0); MEAN PLATELET VOLUME 8.6 FL (7.4-10.4); PLATELET COUNT 94 /CUMM (130-400); RBC DISTRIBUTION WIDTH 13.4 % (11.5-14.5); RED BLOOD CELL CT 4.53 /CUMM (4.70-6.10)
--- NOTE | 2018-05-09 08:05 | PN- Housestaff ---
Elias GURROLA,Macario 05/09/18 0804: Subjective Follow-up For: Fever of Unknown Origin Likely tick borne illness Subjective: Patient was seen and examined today. Patient reports that he is feeling much better today. Patient reports a throbbing headache this morning which improved with Motrin. Denies any other symptoms at this time. Patient was febrile with a MAXIMUM TEMPERATURE of 102.1 Review of Systems Constitutional: Reports: see HPI. Objective Last 24 Hrs of Vital Signs/I&O Vital Signs Date Time Temp Pulse Resp B/P B/P Pulse O2 O2 Flow FiO2 Mean Ox Delivery Rate 05/09 1404 98.5 68 20 108/58 96 Room Air 05/09 0613 98.4 71 18 122/72 98 Room Air 05/08 2238 102.4 89 18 112/72 95 Room Air 05/08 2039 102.0 05/08 1906 99.0 Intake & Output 05/09 1600 05/09 0800 05/09 0000 Intake Total 620 120 200 Output Total Balance 620 120 200 Intake, IV 200 Intake, Oral 620 120 Number 1 1 Bowel Movements Physical Exam General Appearance: Alert, Oriented X3, Cooperative, No Acute Distress HEENT: Atraumatic, PERRLA, EOMI, Mucous Membr. moist/pink Cardiovascular: Regular Rate, Normal S1, Normal S2 Lungs: Clear to Auscultation, Normal Air Movement Abdomen: Normal Bowel Sounds, Soft, No Tenderness Neurological: Normal Gait, Normal Speech, Strength at 5/5 X4 Ext, Normal Tone, Sensation Intact, Cranial Nerves 3-12 NL Extremities: No Clubbing, No Cyanosis, No Edema, Normal Pulses, No Tenderness/ Swelling Current Medications: Current Medications Sig/Gilles Start time Last Medication Dose Route Stop Time Status Admin Acetaminophen 1,000 MG Q6P PRN 05/07 1600 05/08 IV 1906 Doxycycline Hyclate 100 MG BID 05/08 0900 AC 05/09 PO 0804 Heparin Sodium 5,000 UNIT Q8 05/07 2200 AC 05/09 (Porcine) SC 1401 Ibuprofen 600 MG Q6P PRN 05/07 2130 AC 05/09 PO 0805 Patient Medication 1 ED ONE ONE 05/09 1230 DC 05/09 Teaching ED 05/09 1231 1224 Patient Medication 1 ED ONE ONE 05/08 1630 DC 05/08 Teaching ED 05/08 1631 2021 Simethicone 80 MG Q6P PRN 05/07 1915 AC 05/08 PO 0535 Sodium Chloride 1,000 ML Q13H 05/07 1815 DC 05/08 IV 0530 Last 24 Hrs of Lab/Samuel Results Last 24 Hrs of Labs/Mics: Laboratory Tests 05/09/18 0715: CBC w Diff MAN DIFF ORDERED, RBC 4.53 L, MCV 89.1, MCH 31.1 H, MCHC 34.9, RDW 13.4, MPV 8.6, Gran % 63.5, Lymphocytes % 26.3, Monocytes % 9.8 H, Eosinophils % 0.2, Basophils % 0.2, Absolute Granulocytes 3.2, Segmented Neutrophils 41 L, Band Neutrophils 22 H, Absolute Lymphocytes 1.3, Lymphocytes 28, Monocytes 9, Absolute Monocytes 0.5, Absolute Eosinophils 0, Absolute Basophils 0, Platelet Estimate DECREASED, Normocytic RBCs VERIFIED, Normochromic RBCs VERIFIED 05/08/18 2100: A.phagocytophil DNA PCR Pending Assessment/Plan Assessment: Patient is a 57-year-old male with no significant past medical history presenting with significant hypotension, tachycardia, fever and abdominal cramps after ingesting beef tongue which he cooked himself 2 days ago. Patient in the ED was febrile to a MAXIMUM TEMPERATURE of 102.2 and was significantly hypotensive requiring 3 boluses of normal saline. Patient's chest x-ray and CT did not show any significant findings. Patient's blood work significant for lactic acid of 2.4 and bandemia. Urinalysis was unremarkable. After IV fluids patient's bp increased to 110s/80s. Patient was stable for admission to the general medical floor. Patient has received broad spectrum antibiotics x 1 dose. Patient continues to spike fevers however symptoms have improved significantly on antibiotics. Patient's findings are consistent with the possiblity of anaplamosis. ID is on board. There was concern for possible DVT with increased swelling right leg- DVT of lower extremities was negative. Patient had a CT head /sinuses and CT chest which was unremarkable. 1. SIRS/Fever of Unknown Origin - possibly secondary to tick borne illness * Admitted to general medicine * Close monitor of vitals * Follow up blood and urine cultures * Continue doxycycline 100mg q12h * Follow up tick panel, peripheral smear * Repeat CBC in AM * Motrin, Tylenol when necessary for pain and fever * Simethicone when necessary for gas DVT PPx: Lovenox Diet: Regular Code: Full code Problem List: 1. Fever of unknown origin (FUO) Pain Ratin Pain Location: Head Pain Goal: Pain 4 or less Pain Plan: Motrin Tylenol Tomorrow's Labs & Rationales: CBC with peripheral smear Anastacio GURROLAJimmarquis 05/09/18 1355: Attending MD Review Statement Attending Statement Attending MD Statement: examined this patient, discuss w/resident/PA/LOUVER DOOR ASSEMBLER, agreed w/resident/PA/LOUVER DOOR ASSEMBLER, reviewed EMR data (avail), discussed with nursing, discussed with case mgmt, amended to note Attending Assessment/Plan: Patient seen and examined. Reports feeling better. This morning he did complain of a headache. Denies any joint pain. Denies any rash. He is afebrile. He is hemodynamically stable. Blood cultures are negative. He has been afebrile so far today. Labs show a stable hemoglobin level and improvement of his white cell count although he did have a small drop in his platelet count. His leukopenia and thrombocytopenia as well as evidence of the presumed tick bites in the right popliteal area raises concern for a tickborne disease particularly anaplasmosis. His rapid improvement after administration of doxycycline supports the presumptive diagnosis of anaplasmosis. Serologies are currently pending more will unlikely return in the next few days. The patient remains asymptomatic overnight he may be discharged tomorrow to complete a 10 day course of doxycycline. Coinfection with Lyme disease is a possibility despite his negative serology however he is on appropriate antibiotics.
--- NOTE | 2018-05-09 11:55 | PN- Infect Dx ---
Subjective Subjective: T-max 102.4. He feels improved though still notes a mild headache. Objective Last 24 Hrs of Vital Signs/I&O Vital Signs Date Time Temp Pulse Resp B/P B/P Pulse O2 O2 Flow FiO2 Mean Ox Delivery Rate 05/09 0613 98.4 71 18 122/72 98 Room Air 05/08 2238 102.4 89 18 112/72 95 Room Air 05/08 2039 102.0 05/08 1906 99.0 05/08 1427 98.2 63 18 118/80 97 Room Air Intake & Output 05/09 1600 05/09 0800 05/09 0000 Intake Total 120 200 Output Total Balance 120 200 Intake, IV 200 Intake, Oral 120 Number 1 Bowel Movements Physical Exam Other Physical Findings: He appears comfortable in no acute distress Skin right popliteal lesion unchanged, with no evidence of any central clearing Lungs are clear Heart regular rhythm with no murmur Abdomen is soft, nontender with positive bowel sounds Extremities no cyanosis, clubbing or edema Results Last 24 Hours of Lab Results: Laboratory Tests 05/09 05/08 0715 2100 Hematology CBC w Diff MAN DIFF ORDERED WBC (4.8 - 10.8 /CUMM) 5.0 RBC (4.70 - 6.10 /CUMM) 4.53 L Hgb (14.0 - 18.0 G/DL) 14.1 Hct (42 - 52 %) 40.3 L MCV (80.0 - 94.0 FL) 89.1 MCH (27.0 - 31.0 PG) 31.1 H MCHC (33.0 - 37.0 G/DL) 34.9 RDW (11.5 - 14.5 %) 13.4 Plt Count (130 - 400 /CUMM) 94 L MPV (7.4 - 10.4 FL) 8.6 Gran % (42.2 - 75.2 %) 63.5 Lymphocytes % (20.5 - 51.1 %) 26.3 Monocytes % (1.7 - 9.3 %) 9.8 H Eosinophils % (0 - 5 %) 0.2 Basophils % (0.0 - 2.0 %) 0.2 Absolute Granulocytes (1.4 - 6.5 /CUMM) 3.2 Segmented Neutrophils (42.2 - 75.2 %) 41 L Band Neutrophils (0.0 - 5.0 %) 22 H Absolute Lymphocytes (1.2 - 3.4 /CUMM) 1.3 Lymphocytes (20.5 - 51.1 %) 28 Monocytes (1.7 - 9.3 %) 9 Absolute Monocytes (0.10 - 0.60 /CUMM) 0.5 Absolute Eosinophils (0.0 - 0.7 /CUMM) 0 Absolute Basophils (0.0 - 0.2 /CUMM) 0 Platelet Estimate (ADEQUATE) DECREASED Normocytic RBCs VERIFIED Normochromic RBCs VERIFIED Serology A.phagocytophil DNA PCR Pending Last 24 Hours of Samuel Results: Blood cultures May 07 negative Assessment/Plan ID Impression: Doing well, with subjective improvement, decreasing temperatures and increasing white blood cell count, though still with a significant bandemia and with a further decrease in his platelet count, on Doxycycline Day 2 of treatment for presumed Anaplasmosis. The possibility of co-infection with Lyme disease must also be considered despite the negative Lyme titer and a 10 day course of Doxycycline will also treat this. Suggestion: 1. Review peripheral smear for evidence of morulae within the white blood cells 2. Follow-up PCR for Anaplasma 3. Continue Doxycycline to complete a 10 day course
[2018-05-09 14:04] VITALS: BP 108/58
--- NOTE | 2018-05-09 14:12 | Patient Discharge Instructions ---
Discharge Instructions General Discharge Information You were seen/treated for: Fever Tick Bite Special Instructions: Please complete course of antibiotics Please follow up with your pcp within 1 week of discharge Diet Continue normal diet: Yes Activity Full Activity/No Limits: No Activity Self Limited: Yes Acute Coronary Syndrome Inclusion Criteria At DC or during hospital stay patient has or had the following: ACS DIAGNOSIS No Discharge Core Measures Meds if any: Prescribed or Continued at Discharge Meds if any: NOT Prescribed or Continued at Discharge Congestive Heart Failure Inclusion Criteria At DC or during hospital stay patient has or had the following: CHF DIAGNOSIS No Discharge Core Measures Meds if any: Prescribed or Continued at Discharge Meds if any: NOT Prescribed or Continued at Discharge Cerebrovascular accident Inclusion Criteria At DC or during hospital stay patient has or had the following: CVA/TIA Diagnosis No Discharge Core Measures Meds if any: Prescribed or Continued at Discharge Meds if any: NOT Prescribed or Continued at Discharge Venous thromboembolism Inclusion Criteria VTE Diagnosis No VTE Type NONE VTE Confirmed by (Test) NONE Discharge Core Measures - Per Current guidelines, there needs to be overlap - treatment for the first 5 days of Warfarin therapy. - If discharged on Warfarin prior to 5 days of - overlap therapy, the patient will need to be - assessed for post discharge needs including - *Post discharge parental anticoagulation - *Warfarin and/or parental anticoagulation education - *Follow up date to check INR post discharge At least 5 days overlap therapy as Inpatient No Meds if any: Prescribed or Continued at Discharge Note: Overlap Therapy is Warfarin and Anticoagulant Meds if any: NOT Prescribed or Continued at Discharge
[2018-05-09] MEDS ORDERED: DOXYCYCLINE HY100 M2 PO (17:24)
[2018-05-09 22:38] VITALS: BP 106/64
[2018-05-10 05:51] VITALS: BP 108/60
--- NOTE | 2018-05-10 07:09 | PN- Housestaff ---
Elias GURROLA,Macario 05/10/18 0708: Subjective Follow-up For: Fever of Unknown Origin Likely tick borne illness Subjective: Patient was seen and examined today. Patient denies any complaints today. Reports he would like to go home. Patient remains afebrile x 24 hours. No acute events overnight. Review of Systems Constitutional: Reports: see HPI. Objective Last 24 Hrs of Vital Signs/I&O Vital Signs Date Time Temp Pulse Resp B/P B/P Pulse O2 O2 Flow FiO2 Mean Ox Delivery Rate 05/10 0551 98.6 80 18 108/60 96 Room Air Intake & Output 05/10 1600 05/10 0800 05/10 0000 Intake Total 730 490 Output Total Balance 730 490 Intake, IV 10 10 Intake, Oral 720 480 Number 0 0 Bowel Movements Physical Exam General Appearance: Alert, Oriented X3, Cooperative, No Acute Distress Other Physical Findings: Cardiovascular: Regular Rate, Normal S1, Normal S2 Lungs: Clear to Auscultation, Normal Air Movement Abdomen: Normal Bowel Sounds, Soft, No Tenderness Neurological: Normal Gait, Normal Speech, Strength at 5/5 X4 Ext, Normal Tone, Sensation Intact, Cranial Nerves 3-12 NL Extremities: No Clubbing, No Cyanosis, No Edema, Normal Pulses, No Tenderness/ Swelling Current Medications: Current Medications Sig/Gilles Start time Last Medication Dose Route Stop Time Status Admin Acetaminophen 1,000 MG Q6P PRN 05/07 1600 DCD 05/08 IV 1906 Doxycycline Hyclate 100 MG BID 05/08 0900 DCD 05/10 PO 0812 Heparin Sodium 5,000 UNIT Q8 05/07 2200 DCD 05/10 (Porcine) SC 0532 Ibuprofen 600 MG Q6P PRN 05/07 2130 DCD 05/09 PO 1543 Simethicone 80 MG Q6P PRN 05/07 1915 DCD 05/08 PO 0535 Last 24 Hrs of Lab/Samuel Results Last 24 Hrs of Labs/Mics: Laboratory Tests 05/10/18 0655: CBC w Diff MAN DIFF ORDERED, RBC 4.60 L, MCV 90.6, MCH 30.8, MCHC 34.0, RDW 13.5, MPV 8.8, Gran % 58.2, Lymphocytes % 32.7, Monocytes % 8.2, Eosinophils % 0.5, Basophils % 0.4, Absolute Granulocytes 3.5, Segmented Neutrophils 37 L, Band Neutrophils 20 H, Absolute Lymphocytes 2.0, Lymphocytes 37, Monocytes 4, Absolute Monocytes 0.5, Eosinophils 2, Absolute Eosinophils 0, Absolute Basophils 0, Platelet Estimate DECREASED, Normocytic RBCs VERIFIED, Normochromic RBCs VERIFIED Assessment/Plan Assessment: Patient is a 57-year-old male with no significant past medical history presenting with significant hypotension, tachycardia, fever and abdominal cramps after ingesting beef tongue which he cooked himself 2 days ago. Patient in the ED was febrile to a MAXIMUM TEMPERATURE of 102.2 and was significantly hypotensive requiring 3 boluses of normal saline. Patient's chest x-ray and CT did not show any significant findings. Patient's blood work significant for lactic acid of 2.4 and bandemia. Urinalysis was unremarkable. After IV fluids patient's bp increased to 110s/80s. Patient was stable for admission to the general medical floor. Patient has received broad spectrum antibiotics x 1 dose. Patient over the past 24 hours was afebrile on doxycyline. Patient's findings are consistent with the possiblity of anaplamosis. ID is on board. There was concern for possible DVT with increased swelling right leg- DVT of lower extremities was negative. Patient had a CT head/sinuses and CT chest which was unremarkable. 1. SIRS/Fever due to presumed tick borne illness * Admitted to general medicine * Patient is stable, with no fever over the past 24 hours, and stable blood cell counts, will discharge home today on doxycycline 100mg BID for a total of 10 days of therapy. * Continue doxycycline 100mg q12h * Follow up tick panel, peripheral smear * Motrin, Tylenol when necessary for pain and fever * Simethicone when necessary for gas DVT PPx: Lovenox Diet: Regular Code: Full code Problem List: 1. Fever of unknown origin (FUO) Pain Ratin Pain Location: head Pain Goal: Remain pain free Pain Plan: motrin tylenol Tomorrow's Labs & Rationales: none - stable for discharge today Polly Chaves MD 05/10/18 1103: Attending MD Review Statement Attending Statement Attending Statement: examined this patient, discuss w/resident/PA/FORM BUILDER HELPER, agreed w/resident/PA/FORM BUILDER HELPER, reviewed EMR data (avail), discussed with nursing, discussed with case mgmt, amended to note Attending Assessment/Plan: Patient seen and examined. No issues overnight reported by nursing staff. Remains afebrile and hemodynamically stable. Resting comfortably and not in any acute distress. Reports feeling better this morning. Denies headache. Denies nausea vomiting. Laboratory data shows normal hemoglobin and WBC levels. Platelet count is also improving. Patient is medically stable to be discharged today. Presumptive diagnosis of anaplasmosis although serology still pending. He will be discharged on doxycycline to complete 10 days of therapy. He has been advised to follow-up with his primary care provider as an outpatient. He has been asked to return to the emergency room should he develop fever, chills or worsening malaise. or worsening malaise.
[2018-05-10 08:28] LABS: ABSOLUTE BASOPHIL COUNT 0 /CUMM (0.0-0.2); ABSOLUTE EOSINOPHIL COUNT 0 /CUMM (0.0-0.7); ABSOLUTE GRANULOCYTE CT 3.5 /CUMM (1.4-6.5); ABSOLUTE MONOCYTE COUNT 0.5 /CUMM (0.10-0.60); BASOPHIL % 0.4 % (0.0-2.0); EOSINOPHIL % 0.5 % (0-5); GRANULOCYTE % 58.2 % (42.2-75.2); HEMATOCRIT 41.7 % (42-52); MEAN CORPUSCULAR HGB 30.8 PG (27.0-31.0); MEAN CORPUSCULAR VOLUME 90.6 FL (80.0-94.0); MEAN PLATELET VOLUME 8.8 FL (7.4-10.4); PLATELET COUNT 120 /CUMM (130-400); RBC DISTRIBUTION WIDTH 13.5 % (11.5-14.5)
[2018-05-10] MEDS ORDERED: DOXYCYCLINE HY100 M2 PO (09:38)
--- NOTE | 2018-05-10 23:01 | Discharge Summary ---
Visit Information Visit Dates Admission Date: 05/07/18 Discharge Date: 05/10/18 Hospital Course Course Attending Physician: Polly Chaves MD Primary Care Physician: Unknown Allergies: Coded Allergies: NO KNOWN ALLERGIES (NONE 05/07/18) Discharge Instructions General Discharge Information Code Status: Full Code Patient's Diet: Regular Patient's Activity: Self-limited Medications at Discharge Discharge Medications: Start taking the following new medications: Doxycycline Hyclate (Doxycycline Hyclate) 100 MG CAPSULE 1 Tablet ORAL TWICE DAILY Qty = 15 No Refills Instructions: Take 1 tab tonight Then take 1 tab in the morning and 1 tab at bedtime until completed. Comments: Last Taken: 05/10/18 Time: 8:00 AM
== END 2018-05-10 10:17 | DRG 866 ==
LOC: ERH 11:21 → 2NB 15:21 → ERHI 15:21 → ENRESERV 16:12 → ENTRNSPT 16:52 → EDTRNSPTSTS 17:04 → EDTRNSPT 17:04 → 2NB 17:07 → CMPTRNSPT 17:19 → 2NB 05-08 09:17 → ENPENDDIS 05-10 10:04 → 2NB 05-10 10:17
PROVIDERS: Emergency Medicine; Hospitalist; Student in an Organized Health Care Education/Training Program
DX: A93.8 Other specified arthropod-borne viral fevers (principal); A77.49 Other ehrlichiosis; K52.9 Noninfective gastroenteritis and colitis, unspecified
CPT/HCPCS: 2NBSP; 86618; 87798; 36592; 71046; 74177; 80307; 81001; 82436; 87040; 93005; 93010; 93970; 96360; 96361; 99291; J0131; J0713; J1644